=== PATIENT | male | born 1985 | race Caucasian/White ===

== ENCOUNTER 2016-05-25 16:18 | Emergency (ER) | payer OTHER ==
[~2016-05-25] VITALS: Wt 315.0 kg
[~2016-05-25 16:18] MED LIST: ACET1TAB40 PO; CEPH500C PO
[2016-05-25] MEDS ORDERED: ORPH100T PO (17:36)
[2016-05-25] MEDS ORDERED: OXYC-279 PO (17:36)
[2016-05-25] MEDS ORDERED: MED4DP PO (17:36)
--- NOTE | 2016-05-25 17:41 | ERD ---
ER Documentation Chief Complaint Date/Time DATE: 05/25/16 TIME: 17:38 Chief Complaint LOW BACK PAIN NON TRAUMA WHILE BENDING OVER. NO BLUNT TRAUMA HPI This is a 30-year-old male that presents to the ER with lower back pain that started today after he slipped however did not fall. Patient has a past medical history of back pain after trauma he takes oxycodone for his pain. Pain had been okay and he has not taken any medications however after twisting his back today he states that pain got worse again. Patient states that pain is to the left of his spinal column and radiates down his left buttocks. She denies any numbness or tingling of his leg. He denies any fevers or chills. He denies any urine or bowel incontinence. Patient denies any IV drug use. Patient is also complaining of sore throat for the last few days. He denies any problems swallowing or any problems breathing. ROS 12 point review of systems was done, all negative except per HPI. Medications Home Meds Active Scripts Orphenadrine Citrate (Norflex) 100 Mg Tablet.sa, 100 MG PO BID for 3 Days, TAB.SA Prov:BRIDGER ZUNIGA 05/25/16 Methylprednisolone* (Medrol* DOSE PACK) 4 Mg/Dose-Pack Tab.ds.pk, 4 MG PO . DIRECTED for 6 Days, PACKET Prov:BRIDGER ZUNIGA 05/25/16 Oxycodone HCl/Acetaminophen (Percocet 5-325 mg Tablet) 1 Each Tablet, 1 EACH PO Q6, #10 TAB Prov:BRIDGER ZUNIGA 05/25/16 Cephalexin* (Cephalexin*) 500 Mg Capsule, 500 MG PO Q6 for 7 Days, CAP Prov:CHO,DANDY 10/19/14 Acetaminophen-Codeine* (Acetaminophen-Cod #3*) 300-30 Mg Tab, 1 TAB PO Q4H Y for PAIN LEVEL 6-10, #15 TAB Prov:CHO,DANDY 10/19/14 Allergies Allergies: Coded Allergies: No Known Allergy (Unverified , 10/19/14) PMhx/Soc History of Surgery: No Anesthesia Reaction: No Hx Neurological Disorder: No Hx Respiratory Disorders: No Hx Psychiatric Problems: No Hx Miscellaneous Medical Probl: Yes (CHRONIC BACK PAIN) Hx Alcohol Use: Yes (OCCASSIONAL) Hx Substance Use: No Hx Tobacco Use: Yes (MARIJUANA) Smoking Status: Never smoker Physical Exam Vitals Vital Signs Date Time Temp Pulse Resp B/P Pulse Ox O2 Delivery O2 Flow Rate FiO2 05/25/16 16:28 98.9 102 20 156/85 97 Physical Exam GENERAL: The patient is well developed and appropriate for usual state of health , in no apparent distress. NECK: C-spine is soft and supple. There is no cervical lymphadenopathy. HENT: erythematous tonsils, no tonsillar exudate, no uvular deviation CHEST: Clear to auscultation bilaterally. There are no rales, wheezes or rhonchi. HEART: Regular rate and rhythm. No murmurs, clicks, rubs or gallops. ABDOMEN: Soft, nontender and nondistended. Good bowel sounds. No rebound or guarding. No gross peritonitis. No gross organomegaly or masses. No Kate sign or McBurney point tenderness. No pulsatile abdominal mass. BACK: No midline or flank tenderness. Tense paraspinal muscles. Negative leg raise test. No step- offs. EXTREMITIES: Equal pulses bilaterally. There is no peripheral clubbing, cyanosis or edema. No focal swelling or erythema. Full range of motion. Grossly neurovascularly intact. NEURO: Alert and oriented. Cranial nerves II through XII are intact. Motor strength in all 4 extremities with 5/5 strength. Sensation grossly intact. Normal speech and gait. SKIN: There is no apparent rash or petechia. The skin is warm and dry. Results 24 hrs Current Medications Medications (Trade) Dose Ordered Sig/Karon Route PRN Reason Start Time Stop Time Status Last Admin Dose Admin Oxycodone/ Acetaminophen (Percocet (5/ 325)) 1 tab ONCE ONCE PO 05/25/16 18:00 05/25/16 18:01 Ibuprofen (Motrin) 600 mg ONCE ONCE PO 05/25/16 18:00 05/25/16 18:01 Lidocaine (Xylocaine (Viscous)) 15 ml ONCE ONCE PO 05/25/16 18:00 05/25/16 18:01 Procedures/MDM Differential Diagnosis includes but is not limited to back strain, vertebral fracture, epidural abscess, cauda equina, herniated disc, AAA rupture, kidney stones, UTI, pyelonephritis. This is likely back strain. I do not believe that imaging is needed at this time as patient does not fall he has no history of trauma. He is neurovascularly intact to his lower extremities. I doubt cauda equina or epidural abscess. In regards to patient's sore throats is likely viral in etiology. Patient stable for outpatient therapy needs to follow -up with his primary care doctor within 1-2 days or return to ER sooner if symptoms worsen. Medical decision making was checked with the patient he understands and agrees with plan. Departure Diagnosis: Primary Impression: Back pain Condition: Stable Patient Instructions: Back Pain (Acute Or Chronic) Additional Instructions: Call your primary care doctor TOMORROW for an appointment during the next 1-2 days.See the doctor sooner or return here if your condition worsens before your appointment time. BRIDGER ZUNIGA May 25, 2016 17:41
[2016-05-25] MEDS ORDERED: OXYCODONE/ACETAMINOPHEN (5/325) TAB PO ONE (18:00)
[2016-05-25] MEDS ORDERED: IBUPROFEN 600 MG TAB PO ONE (18:00)
[2016-05-25] MEDS ORDERED: LIDOCAINE 2% VISC 15 ML CUP PO ONE (18:00)
== END 2016-05-25 17:56 | disposition home or self-care (01) ==
LOC: FTE 16:18
DX: S39.92XA Unspecified injury of lower back, initial encounter (principal); W18.40XA Slipping, tripping and stumbling without falling, unspecified, initial encounter; Y92.9 Unspecified place or not applicable
CPT/HCPCS: Z7502; Z7610; 99284

== ENCOUNTER 2016-07-14 11:27 | Emergency (ER) | payer OTHER ==
[~2016-07-14] VITALS: Ht 172.7 cm; Wt 150.0 kg
[~2016-07-14 11:27] MED LIST changes: +MED4DP PO; +ORPH100T PO; +OXYC-279 PO
[2016-07-14 12:01] VITALS: Ht 172.7 cm; Wt 150.0 kg
[2016-07-14] MEDS ORDERED: NAPR-260 PO (13:11)
[2016-07-14] MEDS ORDERED: IBUP-1542 PO (13:22)
[2016-07-14] MEDS ORDERED: ACET1TAB40 PO (13:22)
--- NOTE | 2016-07-14 14:03 | ERD ---
ER Documentation Chief Complaint Date/Time DATE: 07/14/16 TIME: 13:50 Chief Complaint WOULD LIKE SOME NAPROXEN FOR LEFT TENNIS ELBOW HPI 30-year-old male with a history of right tennis elbow and possible arthritis presenting to the ER for pain medications. He states he has had right elbow pain, laterally, since using a heavy machine at work 3 weeks ago. He is able to move his arm without difficulty. He denies any numbness or tingling in his extremities. He also complains of right hand pain for several weeks. He has a strong family history of arthritis and was recently told he had arthritis in his hand. Given insurance changes, the patient currently does not have a PMD. He wants a refill for Naproxen, but states it does not help with pain. ROS All systems reviewed and are negative except as per history of present illness. Medications Home Meds Active Scripts Ibuprofen* (Ibuprofen*) 600 Mg Tablet, 600 MG PO Q6H Y for PAIN AND/OR INFLAMMATION, #30 TAB Prov:AAD EASLEY MD 07/14/16 Acetaminophen with Codeine (Acetaminophen-Cod #3 Tablet) 1 Each Tablet, 1 TAB PO Q6H Y for PAIN, #10 TAB Prov:ADA EASLEY MD 07/14/16 Orphenadrine Citrate (Norflex) 100 Mg Tablet.sa, 100 MG PO BID for 3 Days, TAB.SA Prov:BRIDGER ZUNIGA 05/25/16 Methylprednisolone* (Medrol* DOSE PACK) 4 Mg/Dose-Pack Tab.ds.pk, 4 MG PO . DIRECTED for 6 Days, PACKET Prov:BRIDGER ZUNIGA 05/25/16 Oxycodone HCl/Acetaminophen (Percocet 5-325 mg Tablet) 1 Each Tablet, 1 EACH PO Q6, #10 TAB Prov:BRIDGER ZUNIGA C 05/25/16 Cephalexin* (Cephalexin*) 500 Mg Capsule, 500 MG PO Q6 for 7 Days, CAP Prov:CHO,DANDY 10/19/14 Acetaminophen-Codeine* (Acetaminophen-Cod #3*) 300-30 Mg Tab, 1 TAB PO Q4H Y for PAIN LEVEL 6-10, #15 TAB Prov:CHO,DANDY 10/19/14 Discontinued Scripts Naproxen* (Naprosyn*) 500 Mg Tablet, 500 MG PO BID Y for PAIN AND/OR INFLAMMATION, #30 TAB Prov:ADA EASLEY MD 07/14/16 Allergies Allergies: Coded Allergies: No Known Allergy (Unverified , 10/19/14) PMhx/Soc History of Surgery: No Anesthesia Reaction: No Hx Neurological Disorder: No Hx Respiratory Disorders: No Hx Cardiac Disorders: No Hx Psychiatric Problems: No Hx Miscellaneous Medical Probl: Yes (CHRONIC BACK PAIN) Hx Alcohol Use: Yes (OCCASSIONAL) Hx Substance Use: No Hx Tobacco Use: Yes (MARIJUANA) Smoking Status: Current some day smoker FmHx Family History: No diabetes Physical Exam Vitals Vital Signs Date Time Temp Pulse Resp B/P Pulse Ox O2 Delivery O2 Flow Rate FiO2 07/14/16 12:01 98.4 99 18 167/105 97 Physical Exam Const: no apparent distress Head: Atraumatic Resp: No respiratory distress Cardio: Regular rate and rhythm, no murmurs Abd: Soft, non tender Skin: No petechiae or rashes Back: No midline or flank tenderness Ext: Right UPPER EXTREMITY: No obvious deformity. No ecchymosis. No edema. No laceration. Sensations intact. Tenderness to palpation over lateral aspect of elbow with no overlying erythema or joint effusion. Full AROM in Wrist/Elbow/ Shoulder. Left UPPER EXTREMITY: No obvious deformity. No ecchymosis. No edema. No laceration. Tenderness to palpation of MCPs and PIPs with no obvious swelling or erythema. No joint effusions. Full AROM in fingers /wrist/Elbow/Shoulder. Neur: Awake and alert Psych: Normal Mood and Affect Procedures/MDM Patient is presenting with all arthralgias of the left hand and pain in the right elbow secondary to tennis elbow. It is possible he has early onset arthritis given the tenderness on exam of his hand. He is hemodynamically stable. I do not suspect septic joint. I recommended he follow-up with his primary care doctor and possibly requested rheumatologic workup. I will prescribe him ibuprofen and Tylenol No. 3. Return precautions were discussed. Departure Diagnosis: Primary Impression: Elbow pain, chronic Laterality: right Qualified Code: M25.521 - Elbow pain, chronic, right Additional Impression: Arthralgia of left hand Condition: Stable Patient Instructions: Arthralgia, Tennis Elbow ADA EASLEY MD Jul 14, 2016 14:00
== END 2016-07-14 13:54 | disposition home or self-care (01) ==
LOC: FTE 11:27
DX: M25.521 Pain in right elbow (principal); F17.210 Nicotine dependence, cigarettes, uncomplicated
CPT/HCPCS: 99283